=== PATIENT | female | born 2005 | race Two or more races ===

== ENCOUNTER 2024-09-07 10:54 | Emergency (ER) | payer OTHER ==
[2024-09-07 12:11] LABS: ALT (SGPT) 10 U/L (8-55); AST (SGOT) 17 U/L (5-30); Albumin 3.7 g/dL (3.5-5.0); Alkaline Phosphatase 45 U/L (40-100); Anion Gap 10 mmol/L (10-20); BUN (Urea Nitrogen) 12 mg/dL (8.4-21.0); Bilirubin, Total 0.4 mg/dL (0.2-1.2); Calc. Creatinine Clearance 0 mL/min (70-130); Calcium 9.5 mg/dL (7.8-10.44); Carbon Dioxide 24 mmol/L (22-29); Chloride 109 mmol/L (98-107); Estimated GFR 106; Globulin 2.7 g/dL (2.4-3.5); Glucose 83 mg/dL (70-105); Potassium 3.8 mmol/L (3.5-5.1); Protein, Total 6.4 g/dL (6.0-8.3); Sodium 139 mmol/L (136-145)
[2024-09-07 12:22] LABS: Bilirubin Neg (Negative); Blood, Urine Negative (Negative); Clarity Clear (Clear); Glucose, Urine (Dipstick) Normal (Negative); Ketone, Urine Negative (Negative); Leukocyte Negative (Negative); Nitrite Negative (Negative); Protein, Urine (Dipstick) 15 mg/dl (Neg-Trace); Specific Gravity, Urine 1.005 (1.005-1.030); Urobilinogen Normal mg/dL (Less than 2)
[2024-09-07 12:24] LABS: Pregnancy Test - Urine (BHCG) Negative (Negative); Pregu Control Background? CLEAR/WHITE (CLR/WHITE); Pregu Control Bar Appear? YES (CONTROL BAR); Specific Gravity 1.005 (1.002-1.036)
[2024-09-07 12:32] LABS: Bacteria/HPF 2+ HPF (None Seen); CAUTI Indications for Culture Pelvic or flank pain; RBC/HPF None Seen HPF (0-3); Squamous Epithelial 0-3 HPF (0-3); WBC/HPF 0-3 HPF (0-3)
[2024-09-07 12:33] LABS: Urine Culture Reflex No No
[2024-09-07] MEDS ORDERED: Dexamethasone 10 MG/ML VIAL ONE (12:35)
== END 2024-09-07 12:42 | disposition home or self-care (01) ==
LOC: CSHERS 10:54
DX: H05.223 Edema of bilateral orbit (principal)
CPT/HCPCS: 80053; 81001; 81025; 96372; 99283; J1100